=== PATIENT | female | born 1960 | race Two or more races ===

== ENCOUNTER → 2016-10-11 | Outpatient (CLI) | payer OTHER ==
--- NOTE | 2016-10-11 13:55 | MA ---
Diagnostic Right Digital Mammogram with iCAD Clinical Indications: Three-month follow-up probably benign calcifications. Technique: Multiple CC, MLO, and spot compressed and magnified views are obtained throughout the rig ht breast.. This examination was processed by the iCAD computer-aided detection system. Comparison: January 05, 2016, December 22, 2015. Findings: CAD was reviewed. Microcalcifications are unchanged at the anterior and the posterior clusters. Again, anterior cluster is seen on CC and MLO views. A posterior cluster is seen on MLO view only. No new microcalcification s. No architectural distortion or mass. Impression: Stable two clusters of microcalcifications in the right breast. Benign. BI-RADS 2. Recommendation: Resume bilateral annual screening mammographic follow up after December 21, 2016 [facility] will send a result letter to the patient.
== END ==
LOC: CIMAGING 12:22
DX: R92.0 Mammographic microcalcification found on diagnostic imaging of breast (principal)
CPT/HCPCS: G0206